=== PATIENT | female | born 1940 | race Caucasian/White ===

== ENCOUNTER 2017-03-19 19:43 | Emergency (ER) | payer OTHER ==
[~2017-03-19] VITALS: Ht 154.9 cm; Wt 53.5 kg
[~2017-03-19 19:43] MED LIST: ADVAIR 250/501 DISK IH; ADVAIR HFA120 INHAL1 IH; ADVIL,NUPRIN,M200 MG PO; ALEVE220 MG PO; ASPIR 8181 M1 PO; ASPIR-LOW81 MG PO; ASPIRIN E.C.81 M2 PO; ATARAX,VISTARIL25 MG PO; ATARAX10 MG PO; Advair 250/50 Diskus IH; Atarax PO; Augmentin PO; BACTRIM,SEPT1 TABLET PO; BENADRYL ALLERG25 MG PO; BENADRYL50 MG PO; BENTYL10 MG PO; CALCIUM + D 601 EACH PO; CEFUROXIME500 MG PO; CETRAXAL1 EACH BOTH EARS; CIPRO500 MG PO; CLONAZEPAM0.5 MG PO; COMBIVENT INH14.7 GM IH; COMBIVENT RESPIM4 GM IH; COMBIVENT200 INHALA IH; Ceftin PO; Combivent IH; DAILY VITAMIN1 EAC8 PO; DONEPEZIL HCL5 MG PO; DULCOLAX10 MG PR; DULOXETINE HCL30 MG PO; DUONEB 2.5-0.5 M3 ML IH; DuoNeb IH; EFFEXOR75 MG PO; Ecotrin PO; FLEET ENEMA-AD118 ML PR; FLUOXETINE HCL PO; FLUOXETINE HCL20 MG PO; HYDROXYZINE HCL10 MG PO; IPRATROPIU0.2 MG/1 M IH; KLONOPIN0.5 M1 PO; KlonoPIN PO; LEVAQUIN500 MG PO; LEVOFLOXACIN750 MG PO; LORATADINE10 M2 PO; LOW DOSE ASPIRI81 M1 PO; MACROBID100 MG PO; MIRALAX17 GM PO; MULTIVITAMIN1 EAC2 PO; NASACORT10.8 ML BOTH NARES; NEOSPORIN + P28.3 GM TP; NICOTINE PATCH1 EAC2 TD; NITROSTAT0.4 MG SL; OCEAN NASAL 0.645 ML BOTH NARES; OLANZAPINE10 MG PO; OLANZAPINE2.5 MG PO; OLANZAPINE5 MG PO; OLANZAPINE7.5 MG PO; Olanzapine PO; PHILLIPS'400 MG/5 M PO; PREDNISONE10 M1 PO; PREDNISONE10 MG PO; PREDNISONE20 MG PO; PREDNISONE50 MG PO; PROVENTIL,2.5 MG/3 M IH; PROZAC20 MG PO; PROzac PO; RANITIDINE HCL150 M1 PO; REFRESH TEARS15 ML BOTH EYES; REGLAN5 MG PO; SELSUN BLUE NA325 ML TP; SERTRALINE HCL100 MG; SERTRALINE HCL100 MG PO; SERTRALINE HCL50 MG PO; SPIRIVA1 INHALATI IH; THEO-24200 MG PO; THEO-DUR,THEOC200 MG PO; THEO-DUR,THEOC300 MG PO; THEOPHYLLINE A200 M1 PO; TRAMADOL HCL50 MG PO; TYLENOL REGULA325 MG PO; TYLENOL WITH C1 EACH PO; VENLAFAXINE HCL50 MG PO; WOMEN'S DAILY1 EAC1 PO; XANAX0.5 MG PO; ZANTAC150 M1 PO; ZITHROMAX Z-PA250 MG PO; ZOLOFT100 M1 PO; ZOLOFT100 MG PO; ZOLOFT50 MG PO; ZYPREXA2.5 MG PO; ZYPREXA5 MG PO; [UNRECOGNIZED DRUG - REMARK]; predniSONE PO
[2017-03-19 21:11] LABS: ADD MIUA? YES; BILIRUBIN NEGATIVE; BLOOD NEGATIVE; COLOR YELLOW ((YELLOW)); GLUCOSE (STRIP) NEGATIVE; KETONES NEGATIVE; LEUKOCYTES LARGE; NITRITE NEGATIVE; PROTEIN (STRIP) 30; SPECIFIC GRAVITY 1.026 (1.000-1.030)
[2017-03-19 21:17] LABS: BACTERIA RARE /HPF; CALCIUM OXALATE CRYSTALS 1+ /HPF; EPITHELIAL CELLS RARE /HPF; MUCUS TRACE /LPF; RED BLOOD CELLS 0-5 /HPF (0-5); WHITE BLOOD CELLS 20-30 /HPF (0-5)
[2017-03-19] MEDS ORDERED: PREDNISONE50 MG PO (22:00)
[2017-03-19] MEDS ORDERED: KEFLEX500 MG PO (22:00)
[2017-03-19 22:14] VITALS: BP 139/67
== END 2017-03-19 22:18 | disposition home or self-care (01) ==
LOC: EME 19:43
PROVIDERS: Physician Assistant
DX: M54.5 Low back pain (principal); S96.912A Strain of unspecified muscle and tendon at ankle and foot level, left foot, initial encounter; S90.32XA Contusion of left foot, initial encounter; W01.0XXA Fall on same level from slipping, tripping and stumbling without subsequent striking against object, initial encounter; G89.29 Other chronic pain; N39.0 Urinary tract infection, site not specified; L25.9 Unspecified contact dermatitis, unspecified cause; Z90.49 Acquired absence of other specified parts of digestive tract; Z90.710 Acquired absence of both cervix and uterus; Z79.82 Long term (current) use of aspirin; Z87.891 Personal history of nicotine dependence
CPT/HCPCS: 72100; 73502; 73630; 81003; 87086; 99281; 99284; J7512

== ENCOUNTER 2017-04-01 19:36 | Emergency (ER) | payer OTHER ==
[~2017-04-01] VITALS: Ht 154.9 cm; Wt 52.3 kg
[~2017-04-01 19:36] MED LIST changes: +KEFLEX500 MG PO
[2017-04-01] MEDS ORDERED: ATARAX,VISTARIL25 MG PO (21:48)
[2017-04-01 22:05] VITALS: BP 107/80
== END 2017-04-01 22:06 | disposition home or self-care (01) ==
LOC: EME 19:36 → RME 19:36
DX: L30.9 Dermatitis, unspecified (principal); F31.9 Bipolar disorder, unspecified; K21.9 Gastro-esophageal reflux disease without esophagitis; Z87.891 Personal history of nicotine dependence
CPT/HCPCS: 99281; 99284; Q0177

== ENCOUNTER 2017-05-27 14:46 | Inpatient (IN) | payer OTHER ==
[~2017-05-27] VITALS: Ht 154.9 cm; Wt 54.0 kg
[2017-05-27 16:38] LABS: EOSINOPHIL (%) 1.3 % (0-5); EOSINOPHIL COUNT 0.1 K/uL (0-0.3); HEMATOCRIT 43.5 % (36.0-46.0); IMMATURE GRANULOCYTE (%) 0.1 % (0.0-0.7); INSTRUMENT ABS NEUTROPHIL CT 4.5 K/uL; LYMPHOCYTE COUNT 2.1 K/uL (1.0-2.8); MCHC 32.2 G/DL (30.0-36.0); MCV 90.2 FL (83-99); MEAN PLAT.VOLUME 10.3 uM^3 (9.5-12.4); MONOCYTE (%) 5.7 % (3-12); MONOCYTE COUNT 0.4 K/uL (0-0.8); NEUTROPHIL (%) 62.8 % (45-76); NEUTROPHIL COUNT 4.5 K/uL (1.8-6.4); PLATELET COUNT 199 K/uL (156-360); RBC DIS.WIDTH-CV 12.9 % (11.8-14.6); RBC DIS.WIDTH-SD 42.5 % (39-53); RED BLOOD COUNT 4.82 M/uL (3.80-5.20); WHITE BLOOD COUNT 7.2 K/uL (4.1-10.2)
[2017-05-27 16:45] LABS: CHLORIDE 107 mEq/L (99-109); POTASSIUM 4.4 mEq/L (3.7-5.4); SODIUM 141 mEq/L (136-147)
[2017-05-27 16:47] LABS: GLUCOSE 97 mg/dL (70-99)
[2017-05-27 16:49] LABS: ANION GAP 10 MEQ/L (2-14)
[2017-05-27 16:51] LABS: GFR ESTIMATE (CALCULATED) 57 mL/min/
[2017-05-27 16:52] LABS: UREA NITROGEN (BUN) 19 mg/dL (9-23)
[2017-05-27 19:19] LABS: ADD MIUA? NO; BILIRUBIN NEGATIVE; BLOOD NEGATIVE; COLOR YELLOW ((YELLOW)); GLUCOSE (STRIP) NEGATIVE; KETONES 5; LEUKOCYTES NEGATIVE; NITRITE NEGATIVE; PROTEIN (STRIP) NEGATIVE; SPECIFIC GRAVITY 1.018 (1.000-1.030)
[2017-05-28 01:12] VITALS: BP 130/63
[2017-05-28 01:22] LABS: SERUM ETHYL ALCOHOL < 10 mg/dL
[2017-05-28 02:13] LABS: UCUL ADDED? NO
[2017-05-28 02:42] LABS: HDL CHOLESTEROL 43 MG/DL (Desirable>=50); LDL CHOLESTEROL 124 mg/dL (Desirable<100); NON-HDL CHOLESTEROL 160 mg/dL (Desirable<160); SAMPLE HEMOLYSIS CHECK 0; SAMPLE ICTERIC CHECK 0; SAMPLE LIPEMIA CHECK 0; TOTAL CHOLESTEROL 203 mg/dL (Desirable<200); TRIGLYCERIDES 178 MG/DL (Normal: <150)
[2017-05-28 02:43] LABS: AMPHETAMINES QUANT VALUE 0 NG/ML; BARBITUATES QUANT VALUE 0 NG/ML; BENZODIAZEPINES QUANT VALUE 0 NG/ML; BENZODIAZEPINES, URINE SCREEN Negative (200 ng/mL); MARIJUANA QUANT VALUE 0 NG/ML; OPIATES QUANTITATIVE VALUE 0 NG/ML; PHENCYCLIDINE QUANT VALUE 0 NG/ML
[2017-05-28 04:24] VITALS: BP 129/78
[2017-05-28 07:03] LABS: Estimated Average Glucose 114 mg/dL (70-123); HEMOGLOBIN A1c (GLYCOHEMOGLOB) 5.6 % HGB (Below 5.7)
[2017-05-28 07:14] LABS: METH RESISTANT S AUREUS PCR NEGATIVE (NEGATIVE); PROBE CHECK PASS; SPECIMEN PROCESSING CONTROL PASS
[2017-05-28 07:46] VITALS: BP 137/74
[2017-05-28 11:44] VITALS: BP 136/65
[2017-05-28 14:55] LABS: D-DIMER ELISA < 150.00 ng/mLDDU (<230)
[2017-05-28 20:41] VITALS: BP 184/77
[2017-05-28 23:30] VITALS: BP 181/77
[2017-05-29] VITALS: BP 169/74
[2017-05-29 04:44] VITALS: BP 182/89
[2017-05-29 06:58] LABS: EOSINOPHIL (%) 0.1 % (0-5); HEMATOCRIT 43.1 % (36.0-46.0); IMMATURE GRANULOCYTE (%) 0.3 % (0.0-0.7); INSTRUMENT ABS NEUTROPHIL CT 10.8 K/uL; MCH 28.9 PG (29.0-34.0); MCHC 32.3 G/DL (30.0-36.0); MCV 89.6 FL (83-99); MEAN PLAT.VOLUME 10.3 uM^3 (9.5-12.4); MONOCYTE COUNT 0.8 K/uL (0-0.8); NEUTROPHIL (%) 85.9 % (45-76); NEUTROPHIL COUNT 10.8 K/uL (1.8-6.4); PLATELET COUNT 208 K/uL (156-360); RBC DIS.WIDTH-SD 42.9 % (39-53); RED BLOOD COUNT 4.81 M/uL (3.80-5.20); WHITE BLOOD COUNT 12.5 K/uL (4.1-10.2)
[2017-05-29 07:23] LABS: ALKALINE PHOSPHATASE 50 IU/L (3-129); ANION GAP 11 MEQ/L (2-14); CHLORIDE 103 MEQ/L (99-109); GFR ESTIMATE (CALCULATED) > 59 mL/min/; GLUCOSE 130 mg/dL (70-99); POTASSIUM 3.8 MEQ/L (3.7-5.4); SAMPLE HEMOLYSIS CHECK 0; SAMPLE ICTERIC CHECK 0; SAMPLE LIPEMIA CHECK 0; SODIUM 143 MEQ/L (136-147); TOTAL BILIRUBIN 0.8 MG/DL (0.0-1.0); UREA NITROGEN (BUN) 21 mg/dL (9-23)
[2017-05-29 07:36] VITALS: BP 156/81
[2017-05-29 11:32] VITALS: BP 148/78
[2017-05-29 15:21] VITALS: BP 180/78
[2017-05-29 19:34] VITALS: BP 145/85
[2017-05-30] VITALS (7 sets, daily range): BP systolic 103–142; BP diastolic 54–85
[2017-05-30 16:29] LABS: MCV 92.2 FL (83-99)
[2017-05-31 03:52] VITALS: BP 116/60
[2017-05-31 06:11] LABS: EOSINOPHIL (%) 0 % (0-5); HEMATOCRIT 36.3 % (36.0-46.0); IMMATURE GRANULOCYTE (%) 0.4 % (0.0-0.7); INSTRUMENT ABS NEUTROPHIL CT 8.2 K/uL; LYMPHOCYTE COUNT 1.8 K/uL (1.0-2.8); MCH 29.4 PG (29.0-34.0); MCHC 31.7 G/DL (30.0-36.0); MCV 92.8 FL (83-99); MEAN PLAT.VOLUME 10.6 uM^3 (9.5-12.4); MONOCYTE (%) 7.1 % (3-12); MONOCYTE COUNT 0.8 K/uL (0-0.8); NEUTROPHIL (%) 75.6 % (45-76); NEUTROPHIL COUNT 8.2 K/uL (1.8-6.4); PLATELET COUNT 168 K/uL (156-360); RBC DIS.WIDTH-CV 13.3 % (11.8-14.6); RBC DIS.WIDTH-SD 45.5 % (39-53); RED BLOOD COUNT 3.91 M/uL (3.80-5.20); WHITE BLOOD COUNT 10.8 K/uL (4.1-10.2)
[2017-05-31 06:34] LABS: ALKALINE PHOSPHATASE 46 IU/L (3-129); ANION GAP 10 MEQ/L (2-14); CHLORIDE 105 MEQ/L (99-109); GFR ESTIMATE (CALCULATED) 51 mL/min/; GLUCOSE 112 mg/dL (70-99); POTASSIUM 3.7 MEQ/L (3.7-5.4); SAMPLE HEMOLYSIS CHECK 0; SAMPLE ICTERIC CHECK 0; SAMPLE LIPEMIA CHECK 0; SODIUM 145 MEQ/L (136-147); TOTAL BILIRUBIN 0.6 MG/DL (0.0-1.0); UREA NITROGEN (BUN) 30 mg/dL (9-23)
[2017-05-31 07:32] VITALS: BP 135/76
[2017-05-31 10:13] VITALS: BP 163/77
[2017-05-31 10:15] LABS: POINT-OF-CARE METER ID UU13113717
[2017-05-31 16:18] VITALS: BP 142/70
[2017-05-31 19:15] VITALS: BP 117/67
[2017-05-31 23:57] VITALS: BP 110/64
[2017-06-01 04:00] VITALS: BP 125/75
[2017-06-01 07:43] VITALS: BP 130/76
[2017-06-01 11:48] VITALS: BP 98/56
[2017-06-01 16:59] VITALS: BP 138/71
[2017-06-01 19:33] VITALS: BP 124/66
[2017-06-01 23:10] VITALS: BP 102/58
[2017-06-02 03:16] VITALS: BP 110/60
[2017-06-02 06:56] LABS: HEMATOCRIT 34.1 % (36.0-46.0); MCH 29.6 PG (29.0-34.0); MCV 92.7 FL (83-99); RED BLOOD COUNT 3.68 M/uL (3.80-5.20); WHITE BLOOD COUNT 6.2 K/uL (4.1-10.2)
[2017-06-02 06:57] LABS: EOSINOPHIL (%) 0.2 % (0-5); IMMATURE GRANULOCYTE (%) 1.3 % (0.0-0.7); IMMATURE GRANULOCYTE COUNT 0.1 K/uL; INSTRUMENT ABS NEUTROPHIL CT 3.4 K/uL; LYMPHOCYTE COUNT 2.2 K/uL (1.0-2.8); MEAN PLAT.VOLUME 9.9 uM^3 (9.5-12.4); MONOCYTE (%) 8.4 % (3-12); MONOCYTE COUNT 0.5 K/uL (0-0.8); NEUTROPHIL COUNT 3.4 K/uL (1.8-6.4); PLATELET COUNT 167 K/uL (156-360); RBC DIS.WIDTH-CV 13.1 % (11.8-14.6); RBC DIS.WIDTH-SD 44.4 % (39-53)
[2017-06-02 07:48] LABS: ANION GAP 8 MEQ/L (2-14); CHLORIDE 103 MEQ/L (99-109); GFR ESTIMATE (CALCULATED) 57 mL/min/; GLUCOSE 95 mg/dL (70-99); POTASSIUM 3.4 MEQ/L (3.7-5.4); SAMPLE HEMOLYSIS CHECK 0; SAMPLE ICTERIC CHECK 0; SAMPLE LIPEMIA CHECK 0; SODIUM 142 MEQ/L (136-147); UREA NITROGEN (BUN) 20 mg/dL (9-23)
[2017-06-02 08:29] VITALS: BP 126/58
[2017-06-02] MEDS ORDERED: CEFDINIR300 MG PO (11:15)
[2017-06-02] MEDS ORDERED: SPIRIVA RESPIMAT4 GM IH (11:16)
[2017-06-02] MEDS ORDERED: PRAVASTATIN SOD40 MG PO (11:16)
[2017-06-02] MEDS ORDERED: ANTIVERT25 MG PO (11:17)
[2017-06-02] MEDS ORDERED: SUCRALFATE1 GM PO (11:19)
[2017-06-02] MEDS ORDERED: PROTONIX40 MG PO (11:20)
[2017-06-02] MEDS ORDERED: PREDNISONE10 MG PO (11:22)
[2017-06-02] MEDS ORDERED: CLONAZEPAM0.5 MG PO (11:23)
== END 2017-06-02 13:37 | DRG 189 ==
LOC: EME 14:46 → EDOF 23:18 → 5SOUTH 23:18 → 5EAST 23:18 → ENRESERV 23:19 → 5EAST 05-28 00:53 → ENRESERV 05-28 03:34 → 5SOUTH 05-28 04:22
PROVIDERS: Emergency Medicine; Hospitalist; Internal Medicine; Internal Medicine Gastroenterology; Physician Assistant Medical
PROC: 0DB78ZX Excision of Stomach, Pylorus, Via Natural or Artificial Opening Endoscopic, Diagnostic (ICD-10-PCS; principal; 2017-05-31)
DX: J96.21 Acute and chronic respiratory failure with hypoxia (principal); J44.1 Chronic obstructive pulmonary disease with (acute) exacerbation; I48.0 Paroxysmal atrial fibrillation; R42 Dizziness and giddiness; F41.1 Generalized anxiety disorder; K21.0 Gastro-esophageal reflux disease with esophagitis; J44.0 Chronic obstructive pulmonary disease with (acute) lower respiratory infection; F31.9 Bipolar disorder, unspecified; N18.3 Chronic kidney disease, stage 3 (moderate); E78.5 Hyperlipidemia, unspecified; F03.90 Unspecified dementia, unspecified severity, without behavioral disturbance, psychotic disturbance, mood disturbance, and anxiety; I12.9 Hypertensive chronic kidney disease with stage 1 through stage 4 chronic kidney disease, or unspecified chronic kidney disease; M41.9 Scoliosis, unspecified; K44.9 Diaphragmatic hernia without obstruction or gangrene; R26.9 Unspecified abnormalities of gait and mobility; R13.10 Dysphagia, unspecified; M46.90 Unspecified inflammatory spondylopathy, site unspecified; K20.9 Esophagitis, unspecified; K59.00 Constipation, unspecified; K57.30 Diverticulosis of large intestine without perforation or abscess without bleeding; Z86.010 Personal history of colon polyps; Z90.49 Acquired absence of other specified parts of digestive tract; Z87.891 Personal history of nicotine dependence; Z91.19 Patient's noncompliance with other medical treatment and regimen; Z86.73 Personal history of transient ischemic attack (TIA), and cerebral infarction without residual deficits; Z99.81 Dependence on supplemental oxygen; Z79.82 Long term (current) use of aspirin; Z79.899 Other long term (current) drug therapy
CPT/HCPCS: 70450; 70551; 71010; 74176; 80048; 80053; 80061; 80306 90; 81003; 82948; 83036; 85014; 85018; 85025; 85379; 87493; 87641; 88305; 88342 TC; 93880; 94640; 94640 76; 94760; 94799; 99202; 99281; 99285; C9113; G0480; J0696; J1644; J2060; J2405; J2765; J2930; J7030; J7512

== ENCOUNTER 2017-10-17 14:04 | Emergency (ER) | payer OTHER ==
[~2017-10-17] VITALS: Ht 154.9 cm; Wt 65.6 kg
[~2017-10-17 14:04] MED LIST changes: +ANTIVERT25 MG PO; +CEFDINIR300 MG PO; +PRAVASTATIN SOD40 MG PO; +PROTONIX40 MG PO; +SPIRIVA RESPIMAT4 GM IH; +SUCRALFATE1 GM PO
[2017-10-17 14:48] LABS: BASOPHIL (%) 0.7 % (0-1); BASOPHIL COUNT 0.1 K/uL (0-0.1); EOSINOPHIL (%) 0.6 % (0-5); HEMATOCRIT 41.1 % (36.0-46.0); HEMOGLOBIN 13.1 G/DL (11.9-15.5); IMMATURE GRANULOCYTE (%) 0.3 % (0.0-0.7); LYMPHOCYTE (%) 19.4 % (15-42); LYMPHOCYTE COUNT 1.4 K/uL (1.0-2.8); MCH 28.6 PG (29.0-34.0); MCHC 31.9 G/DL (30.0-36.0); MCV 89.7 FL (83-99); MONOCYTE (%) 5.1 % (3-12); MONOCYTE COUNT 0.4 K/uL (0-0.8); NEUTROPHIL (%) 73.9 % (45-76); NEUTROPHIL COUNT 5.4 K/uL (1.8-6.4); PLATELET COUNT 215 K/uL (156-360); RBC DIS.WIDTH-CV 13.7 % (11.8-14.6); RBC DIS.WIDTH-SD 44.4 % (39-53); RED BLOOD COUNT 4.58 M/uL (3.80-5.20); WHITE BLOOD COUNT 7.3 K/uL (4.1-10.2)
[2017-10-17 14:56] LABS: CHLORIDE 107 mEq/L (99-109); POTASSIUM 4.2 mEq/L (3.7-5.4); SODIUM 144 mEq/L (136-147)
[2017-10-17 14:57] LABS: GLUCOSE 100 mg/dL (70-99)
[2017-10-17 15:01] LABS: CREATININE 0.9 mg/dL (0.6-1.3); GFR ESTIMATE (CALCULATED) > 59 mL/min/
[2017-10-17 15:02] LABS: UREA NITROGEN (BUN) 24 mg/dL (9-23)
[2017-10-17 19:00] VITALS: BP 101/79
[2017-10-18] MEDS ORDERED: FLAGYL500 MG PO (14:51)
== END 2017-10-17 19:39 ==
LOC: EME 14:04
PROVIDERS: Emergency Medicine
DX: R42 Dizziness and giddiness (principal); R11.2 Nausea with vomiting, unspecified; R51 Headache; H93.19 Tinnitus, unspecified ear; J44.9 Chronic obstructive pulmonary disease, unspecified; Z99.81 Dependence on supplemental oxygen; Z90.49 Acquired absence of other specified parts of digestive tract; Z90.710 Acquired absence of both cervix and uterus; Z79.82 Long term (current) use of aspirin; Z87.891 Personal history of nicotine dependence
CPT/HCPCS: 70450; 71045; 80048; 85025; 93005; 99281; 99285

== ENCOUNTER 2017-10-18 11:24 | Emergency (ER) | payer OTHER ==
[~2017-10-18] VITALS: Ht 154.9 cm; Wt 61.2 kg
[2017-10-18 11:58] LABS: BASOPHIL (%) 0.6 % (0-1); EOSINOPHIL (%) 0.8 % (0-5); EOSINOPHIL COUNT 0.1 K/uL (0-0.3); HEMATOCRIT 40.9 % (36.0-46.0); HEMOGLOBIN 12.8 G/DL (11.9-15.5); IMMATURE GRANULOCYTE (%) 0.5 % (0.0-0.7); LYMPHOCYTE COUNT 1.3 K/uL (1.0-2.8); MCHC 31.3 G/DL (30.0-36.0); MCV 92.5 FL (83-99); MONOCYTE (%) 7.2 % (3-12); MONOCYTE COUNT 0.5 K/uL (0-0.8); NEUTROPHIL (%) 71.9 % (45-76); NEUTROPHIL COUNT 4.7 K/uL (1.8-6.4); PLATELET COUNT 186 K/uL (156-360); RBC DIS.WIDTH-CV 13.8 % (11.8-14.6); RBC DIS.WIDTH-SD 47.1 % (39-53); RED BLOOD COUNT 4.42 M/uL (3.80-5.20); WHITE BLOOD COUNT 6.6 K/uL (4.1-10.2)
[2017-10-18 12:08] LABS: ALBUMIN 3.9 g/dL (3.2-4.8); CHLORIDE 107 mEq/L (99-109); POTASSIUM 4.1 mEq/L (3.7-5.4); SODIUM 142 mEq/L (136-147)
[2017-10-18 12:11] LABS: GLUCOSE 98 mg/dL (70-99); TOTAL PROTEIN 6.4 g/dL (6.4-8.3)
[2017-10-18 12:13] LABS: TOTAL BILIRUBIN 0.8 mg/dL (0.0-1.0)
[2017-10-18 12:14] LABS: ALKALINE PHOSPHATASE 70 IU/L (3-129); CREATININE 1.2 mg/dL (0.6-1.3); GFR ESTIMATE (CALCULATED) 46 mL/min/
[2017-10-18 12:15] LABS: UREA NITROGEN (BUN) 23 mg/dL (9-23)
[2017-10-18 12:16] LABS: AST (GOT) 15 IU/L (2-34)
[2017-10-18 12:17] LABS: ALT (GPT) 9 IU/L (3-49)
[2017-10-18 12:19] LABS: APPEARANCE CLEAR ((CLEAR)); BILIRUBIN NEGATIVE; BLOOD NEGATIVE; COLOR YELLOW ((YELLOW)); GLUCOSE (STRIP) NEGATIVE; KETONES NEGATIVE; LEUKOCYTES NEGATIVE; NITRITE NEGATIVE; PROTEIN (STRIP) NEGATIVE; SPECIFIC GRAVITY 1.021 (1.000-1.030); UCUL ADDED? NO
[2017-10-18] MEDS ORDERED: FLAGYL500 MG PO (14:51)
[2017-10-18 16:12] VITALS: BP 126/72
== END 2017-10-18 16:22 ==
LOC: EME 11:24
PROVIDERS: Emergency Medicine
DX: K52.9 Noninfective gastroenteritis and colitis, unspecified (principal); F32.9 Major depressive disorder, single episode, unspecified; F41.9 Anxiety disorder, unspecified; K21.9 Gastro-esophageal reflux disease without esophagitis; Z87.891 Personal history of nicotine dependence
CPT/HCPCS: 74176; 80053; 81003; 83605; 85025; 99281; 99285; J7030

== ENCOUNTER 2017-11-13 15:58 | Emergency (ER) | payer OTHER ==
[~2017-11-13] VITALS: Ht 154.9 cm; Wt 64.7 kg
[~2017-11-13 15:58] MED LIST changes: +FLAGYL500 MG PO
[2017-11-13 16:58] LABS: BASOPHIL (%) 0.8 % (0-1); EOSINOPHIL (%) 2.1 % (0-5); EOSINOPHIL COUNT 0.1 K/uL (0-0.3); HEMATOCRIT 35.7 % (36.0-46.0); HEMOGLOBIN 11.3 G/DL (11.9-15.5); LYMPHOCYTE (%) 45.7 % (15-42); LYMPHOCYTE COUNT 2.2 K/uL (1.0-2.8); MCH 28.9 PG (29.0-34.0); MCHC 31.7 G/DL (30.0-36.0); MCV 91.3 FL (83-99); MONOCYTE (%) 8.8 % (3-12); MONOCYTE COUNT 0.4 K/uL (0-0.8); NEUTROPHIL (%) 42.6 % (45-76); PLATELET COUNT 194 K/uL (156-360); RBC DIS.WIDTH-CV 14.3 % (11.8-14.6); RBC DIS.WIDTH-SD 47.8 % (39-53); RED BLOOD COUNT 3.91 M/uL (3.80-5.20); WHITE BLOOD COUNT 4.8 K/uL (4.1-10.2)
[2017-11-13 17:08] LABS: ALBUMIN 3.5 g/dL (3.2-4.8); CHLORIDE 104 mEq/L (99-109); POTASSIUM 4.2 mEq/L (3.7-5.4); SODIUM 141 mEq/L (136-147)
[2017-11-13 17:10] LABS: GLUCOSE 99 mg/dL (70-99)
[2017-11-13 17:11] LABS: TOTAL PROTEIN 5.8 g/dL (6.4-8.3)
[2017-11-13 17:12] LABS: TOTAL BILIRUBIN 0.4 mg/dL (0.0-1.0)
[2017-11-13 17:14] LABS: ALKALINE PHOSPHATASE 48 IU/L (3-129); GFR ESTIMATE (CALCULATED) 57 mL/min/
[2017-11-13 17:15] LABS: UREA NITROGEN (BUN) 20 mg/dL (9-23)
[2017-11-13 17:16] LABS: AST (GOT) 14 IU/L (2-34)
[2017-11-13 17:17] LABS: ALT (GPT) 6 IU/L (3-49); LIPASE 18 U/L (1.0-51.0)
[2017-11-13 17:55] LABS: APPEARANCE CLEAR ((CLEAR)); BILIRUBIN NEGATIVE; BLOOD NEGATIVE; COLOR YELLOW ((YELLOW)); GLUCOSE (STRIP) NEGATIVE; KETONES NEGATIVE; LEUKOCYTES NEGATIVE; NITRITE NEGATIVE; PROTEIN (STRIP) NEGATIVE; SPECIFIC GRAVITY 1.015 (1.000-1.030); UCUL ADDED? NO; UROBILINOGEN 0.2 MG/DL (0.2-1.0)
[2017-11-13 21:31] VITALS: BP 114/61
== END 2017-11-13 21:32 ==
LOC: EME 15:58
PROVIDERS: Emergency Medicine
DX: R10.31 Right lower quadrant pain (principal); R10.32 Left lower quadrant pain; R11.2 Nausea with vomiting, unspecified; J98.11 Atelectasis; K57.30 Diverticulosis of large intestine without perforation or abscess without bleeding; K44.9 Diaphragmatic hernia without obstruction or gangrene; I10 Essential (primary) hypertension; J44.9 Chronic obstructive pulmonary disease, unspecified; Z90.49 Acquired absence of other specified parts of digestive tract; Z90.710 Acquired absence of both cervix and uterus; Z79.82 Long term (current) use of aspirin; Z87.891 Personal history of nicotine dependence
CPT/HCPCS: 71046; 74176; 80053; 81003; 83605; 83690; 85025; 99281; 99284